=== PATIENT | male | born 1980 | race Two or more races ===

== ENCOUNTER 2023-09-22 09:16 | Emergency (ER) | payer BC ==
[~2023-09-22] VITALS: Ht 188 cm; Wt 95.3 kg
[2023-09-22 10:34] LABS: BASOPHILS % (AUTO) 0.4 % (0.0-2.0); EOSINOPHILS # (AUTO) 0.1 K/uL (0.0-0.7); HEMATOCRIT 44 % (39-51); HEMOGLOBIN 14.9 g/dL (13.5-17.5); LYMPHOCYTES % (AUTO) 33.4 % (20.0-44.0); MEAN CORPUSCULAR HEMOGLOBIN 31 PG (26.0-33.0); MEAN CORPUSCULAR HGB CONC 34 g/dl (31.0-36.0); MEAN CORPUSCULAR VOLUME 92 fL (80-96); MONOCYTES # (AUTO) 0.4 K/uL (0.1-1.30); MONOCYTES % (AUTO) 6.2 % (2.0-12.0); NEUTROPHILS # (AUTO) 3.5 K/uL (1.8-8.9); PLATELET COUNT (AUTO) 178 K/uL (150-450); RED BLOOD CELL COUNT(AUTO) 4.78 MIL/uL (4.5-6.0); RED CELL DISTRIBUTION WIDTH 13.6 % (11.5-15.0); WHITE BLOOD COUNT (AUTO) 5.9 K/uL (4.3-11.0)
[2023-09-22 10:42] LABS: CALCIUM, SERUM 8.8 mg/dL (8.5-10.1); CREATININE 0.9 mg/dL (0.6-1.3); POTASSIUM 4.2 mmol/L (3.5-5.1)
[2023-09-22] MEDS: IV NS 0.9% 1,000 ML BAG IV ONE ×2 (11:30→15:00)
[2023-09-22] MEDS: KETOROLAC TROMETHAMINE INJ 30 MG/ML VIAL IV ONE (12:30)
[2023-09-22] MEDS ORDERED: KETOROLAC TROMETHAMINE INJ 30 MG/ML VIAL ONE (12:57)
[2023-09-22] MEDS: METOCLOPRAMIDE HCL 10 MG/2 ML VIAL IV ONE (15:00)
[2023-09-22] MEDS ORDERED: METOCLOPRAMIDE HCL 10 MG/2 ML VIAL ONE (17:44)
[2023-09-22] MEDS ORDERED: SUMA100T16 PO (18:02)
[2023-09-22] MEDS ORDERED: ACET-2605 PO (18:02)
[2023-09-22] MEDS ORDERED: METO-295 PO (18:02)
[2023-09-22 18:14] VITALS: BP 121/74; TEMP 97.7; O2SAT 100
== END 2023-09-22 20:00 | disposition home or self-care (01) ==
LOC: ER 09:43 → MED 17:03 → UNDOADMIN 17:03 → UNDODISIN 18:10 → ER 20:00
DX: R51.9 Headache, unspecified (principal); M54.2 Cervicalgia; M54.50 Low back pain, unspecified
CPT/HCPCS: 99285; 72148; 96374; 70450; 96361; 70551; 72141; 72146; 85025; 80048; 36415; J1885; J7030 ×2; G0378; J2765